=== PATIENT | female | born 1950 | race Caucasian/White ===

== ENCOUNTER → 2019-06-17 | Outpatient (CLI) | payer MEDICARE, OTHER ==
[~2019-06-17] MED LIST: BUSP10TA2 PO; ENAL5TAB PO; FOLI1TAB PO; GABA600T3 PO; METATAB PO; MULTIVIT PO; OMEP20TA7 OR; OMEP20TA7 PO; PROPR; TYLENOL; TYLENOL PM; VICO5TAB PO; WELL100T PO; [UNRECOGNIZED DRUG - OTHER]
== END ==
LOC: M WHC 10:32
PROVIDERS: ATTEND Physician Assistant
DX: Z13.820 Encounter for screening for osteoporosis (principal)

== ENCOUNTER → 2020-04-28 | Outpatient (CLI) | payer SELFPAY | LOC: M LABSMTC 10:55 | PROVIDERS: ATTEND Pediatrics | DX: Z20.828 Contact with and (suspected) exposure to other viral communicable diseases (principal) ==

== ENCOUNTER → 2020-08-13 | Outpatient (CLI) | payer MEDICARE, OTHER ==
--- NOTE | 2020-08-13 12:49 | REP ---
INDICATION: UNSP ATHSCL SENECA ARTERIES TOMMY LEGS COMPARISON: None. TECHNIQUE: Real time salas scale and Duplex Doppler evaluation of the bilateral lower extremity arterial vasculature using linear high frequency transducer. FINDINGS: Salas scale and duplex doppler images demonstrate mild scattered plaquing bilaterally. There is no hemodynamically significant stenosis and no arterial occlusion. JENN bilaterally is 1.0. There are diffuse triphasic waveforms bilaterally with biphasic waveform in the distal right anterior tibial artery. A complex Woodruff's cyst in the left popliteal fossa measures 4.5 x 0.9 x 2.6 cm. Peak systolic velocities (cm/sec) Common femoral artery: Right 63; Left 100 Profunda femoris: Right 93; Left 58 SFA (proximal): Right 155; Left 78 SFA (mid): Right 73; Left 80 SFA (distal): Right 59; Left 67 Popliteal artery: Right 46; Left 57 GUANAKITO (prox.): Right 36; Left 51 Tibioperoneal trunk: Right 38; Left 39 SPOOL CLEANER (prox.): Right 46; Left 47 SPOOL CLEANER (distal): Right 34; Left 63 GUANAKITO (distal): Right 33; Left 50 IMPRESSION: Mild scattered plaquing bilaterally. No evidence of hemodynamically significant stenosis or arterial occlusion. Complex Woodruff cyst left popliteal fossa 4.5 x 0.9 x 2.6 cm. <Electronically signed by Ruben Salas > 08/13/20 [id number]
== END ==
LOC: M RAD 11:13
PROVIDERS: ATTEND Physician Assistant
DX: I70.213 Atherosclerosis of native arteries of extremities with intermittent claudication, bilateral legs (principal)

== ENCOUNTER → 2020-12-30 | Outpatient (CLI) | payer MEDICARE, OTHER ==
--- NOTE | 2020-12-30 13:08 | REP ---
INDICATION: PAIN LT KNEE. COMPARISON: No comparison radiographs.. TECHNIQUE: Axial, coronal, and sagittal imaging planes utilized. T1, proton density and T2 weighted scans are included with without fat saturation. FINDINGS: There is a elongate Woodruff's cyst, 9.1 x 1.9 x 2.4 cm in diameter. There is a moderate to large joint effusion in the suprapatellar patellar bursa. There are extensive areas of marrow edema throughout the tibia centered in the medial tibial plateau and medial tibial metaphysis region. There also fairly large areas of marrow edema involving the lateral femoral condyle and the medial femoral condyle. No bony destructive lesion is seen. Superficial venous varicosities are noted in the periarticular soft tissues. There is patellofemoral, medial, and lateral tibiofemoral compartment spurring. Advanced chondromalacia changes are seen with large areas of full-thickness articular cartilage loss in the medial tibiofemoral compartment. Moderate chondromalacia changes are seen in the lateral and patellofemoral compartments. There are degenerative tears of the medial and lateral menisci. There is some medial meniscal extrusion which leads to some bowing of the medial collateral ligament. The horizontal tear is seen in the posterior horn and posterior body of the medial meniscus and there is posterior horn inner free margin tear of the lateral meniscus. Anterior and posterior cruciate ligaments appear intact. Patellar and quadriceps tendons are intact. There is no evidence of medial or lateral collateral ligament disruption. No loose body is appreciated. IMPRESSION: Moderate 3 compartment osteoarthritis. Large areas of marrow edema in the proximal tibia and distal femur. Joint effusion and Woodruff's cyst. Degenerative tears of the medial and lateral menisci and extensive chondromalacia as above. <Electronically signed by Tc Mckeon > 12/30/20 [id number]
== END ==
LOC: M RAD 09:56
PROVIDERS: ATTEND Orthopaedic Surgery
DX: R93.7 Abnormal findings on diagnostic imaging of other parts of musculoskeletal system (principal); M25.562 Pain in left knee

== ENCOUNTER → 2021-08-16 | Outpatient (CLI) | payer MEDICARE, OTHER | LOC: M LABSMTC 09:50 | PROVIDERS: ATTEND Orthopaedic Surgery | DX: Z01.818 Encounter for other preprocedural examination (principal); M25.562 Pain in left knee; M17.12 Unilateral primary osteoarthritis, left knee ==

== ENCOUNTER → 2021-11-15 | Outpatient (CLI) | payer MEDICARE, OTHER | LOC: M WHC 07:44 | PROVIDERS: ATTEND Family Medicine | DX: D48.1 Neoplasm of uncertain behavior of connective and other soft tissue (principal) ==

== ENCOUNTER 2021-11-25 07:54 | Outpatient (CLI) | payer MEDICARE, OTHER ==
[~2021-11-25] VITALS: Ht 175.3 cm; Wt 99.0 kg
[2021-11-25] MEDS ORDERED: FERRIC CARBOXYMALTOSE INJ 750 MG in NS 250 ML (>50kg) IV ONE ×3 (08:00)
[2021-11-25 08:05] VITALS: BP 123/69
[2021-11-25 09:32] VITALS: BP 107/58
== END 2021-11-25 10:00 | disposition home or self-care (01) ==
LOC: M INFU 07:54
PROVIDERS: ATTEND Family Medicine
DX: D50.9 Iron deficiency anemia, unspecified (principal)
CPT/HCPCS: 96365; J1439

== ENCOUNTER 2021-12-02 09:00 | Outpatient (CLI) | payer MEDICARE, OTHER ==
[~2021-12-02] VITALS: Ht 175.3 cm; Wt 99.0 kg
[~2021-12-02 09:00] MED LIST changes: +FERRIC CARBOXYMALTOSE INJ 750 MG in NS 250 ML (>50kg) IV ONE
[2021-12-02 09:10] VITALS: BP 120/75
[2021-12-02 10:30] VITALS: BP 133/71
== END 2021-12-02 10:30 | disposition home or self-care (01) ==
LOC: M INFU 09:00
PROVIDERS: ATTEND Family Medicine
DX: D50.9 Iron deficiency anemia, unspecified (principal); Z98.84 Bariatric surgery status
CPT/HCPCS: 96365; J1439

== ENCOUNTER → 2021-12-03 | Outpatient (CLI) | payer MEDICARE, OTHER ==
[~2021-12-03] MED LIST changes: -FERRIC CARBOXYMALTOSE INJ 750 MG in NS 250 ML (>50kg) IV ONE
== END ==
LOC: M RAD 12:57
PROVIDERS: ATTEND Chiropractor
DX: M54.50 Low back pain, unspecified (principal)

== ENCOUNTER → 2022-01-21 | Outpatient (CLI) | payer MEDICARE, OTHER | LOC: M WHC 12:33 | PROVIDERS: ATTEND Internal Medicine Hematology & Oncology | DX: R19.09 Other intra-abdominal and pelvic swelling, mass and lump (principal); D25.9 Leiomyoma of uterus, unspecified; N94.89 Other specified conditions associated with female genital organs and menstrual cycle ==

== ENCOUNTER 2022-08-28 11:43 | Emergency (ER) | payer MEDICARE, OTHER ==
[~2022-08-28] VITALS: Ht 175.3 cm; Wt 97.3 kg
[~2022-08-28 11:43] MED LIST changes: +BUPR-71 PO; +BUSP10TA PO; +BYDU2INJ7 SC; +CALC-190 PO; +DULO1CAP6 PO; +ENAL1TAB50 PO; +FOLI1TAB11 PO; +GABA-282 PO; +HYDR-4514 PO; +MM S100C PO; +OMEP-173 PO; +PRES1CHW PO; +ROSU40TA4 PO; +SPIR1TAB34 PO; +VITATAB73 PO; +VITMTA PO
[2022-08-28] MEDS ORDERED: BOOSTRIX/ADACEL VACCINE (DIPHTH/PERTUSS/ACELL/TETANUS) 0.5ML SYR IM ONE (14:30)
[2022-08-28] MEDS ORDERED: ceFAZolin SOD 2 GM in IV 1 EA IV ONE (14:30)
[2022-08-28] MEDS ORDERED: ONDANSETRON 4MG 2ML VIAL IV ONE (14:45)
[2022-08-28] MEDS ORDERED: MORPHINE 4 MG/ML 1ML VIAL IV ONE (14:45)
[2022-08-28] MEDS ORDERED: LIDOCAINE 1% MDV 20ML VIAL INFIL ONE (15:05)
[2022-08-28 15:35] LABS: BASO % 0.6 % (0.0-1.0); EOS # 0.3 10^3/uL (0.0-0.5); EOS % 7.3 % (0.0-3.0); HEMATOCRIT 38.8 % (36.0-47.0); HEMOGLOBIN 11.9 g/dl (12.0-15.5); LYMPH # 0.6 10^3/uL (1.5-5.0); LYMPH % 13.5 % (24.0-44.0); MEAN CORPUSCULAR HEMOGLOBIN 26.5 pg (27.0-33.0); MEAN CORPUSCULAR HGB CONC 30.7 g/dl (32.0-36.5); MEAN CORPUSCULAR VOLUME 86.4 fl (80.0-96.0); MONO # 0.3 10^3/uL (0.0-0.8); MONO % 6.6 % (2.0-8.0); NEUTROPHILS # 3.3 10^3/uL (1.5-8.5); NEUTROPHILS % 71.4 % (36.0-66.0); PLATELET COUNT, AUTOMATED 177 10^3/uL (150-450); RED BLOOD COUNT 4.49 10^6/uL (4.00-5.40); WHITE BLOOD COUNT 4.7 10^3/uL (4.0-10.0)
[2022-08-28 15:46] LABS: INR 0.94; PROTHROMBIN TIME 12.8 SECONDS (12.5-14.5)
[2022-08-28 15:47] LABS: PARTIAL THROMBOPLASTIN TIME 30.3 SECONDS (24.8-34.2)
[2022-08-28] MEDS ORDERED: CEPH500C PO (15:58)
[2022-08-28] MEDS ORDERED: PERC5TAB12 PO (15:58)
[2022-08-28 15:59] LABS: BLOOD UREA NITROGEN 23 MG/DL (9-23); CALCIUM LEVEL 9.6 MG/DL (8.3-10.6); CARBON DIOXIDE LEVEL 28 MMOL/L (20-31); CHLORIDE LEVEL 101 MMOL/L (98-107); CREATININE FOR GFR 0.98 MG/DL (0.55-1.30); GLOMERULAR FILTRATION RATE 59.2 (>39); GLUCOSE, FASTING 99 MG/DL (74-106); POTASSIUM SERUM 4.5 MMOL/L (3.5-5.1); SODIUM LEVEL 137 MMOL/L (136-145)
[2022-08-28 16:02] LABS: HEPATITIS B SURFACE ANTIBODY NEGATIVE (POSITIVE)
[2022-08-28 16:14] LABS: HEPATITIS B SURFACE ANTIGEN NEGATIVE (NEGATIVE)
[2022-08-28 16:27] LABS: HIV 1&2 SCREEN CENTAUR NEGATIVE (NEGATIVE)
[2022-08-28 16:35] LABS: HEPATITIS C VIRUS ABY INDEX 0.1 INDEX (<0.8)
[2022-08-28 17:07] VITALS: BP 142/98
== END 2022-08-28 17:17 | disposition home or self-care (01) ==
LOC: M ED 11:43
DX: S68.621A Partial traumatic transphalangeal amputation of left index finger, initial encounter (principal); S62.633B Displaced fracture of distal phalanx of left middle finger, initial encounter for open fracture; W31.2XXA Contact with powered woodworking and forming machines, initial encounter; Y92.009 Unspecified place in unspecified non-institutional (private) residence as the place of occurrence of the external cause; Y93.H3 Activity, building and construction; Y99.8 Other external cause status; S66.102A Unspecified injury of flexor muscle, fascia and tendon of right middle finger at wrist and hand level, initial encounter; I10 Essential (primary) hypertension; E11.9 Type 2 diabetes mellitus without complications; E78.5 Hyperlipidemia, unspecified
CPT/HCPCS: 12001; 73140; 80048; 85025; 85610; 85730; 86706; 86803; 87340; 87389; 90715; 99284; J0690; J2405

== ENCOUNTER → 2023-07-10 | Outpatient (CLI) | payer MEDICARE, OTHER ==
[~2023-07-10] MED LIST changes: +CEPH500C PO; +PERC5TAB12 PO
[2023-07-10 13:29] LABS: HEMATOCRIT 36.8 % (36.0-47.0); HEMOGLOBIN 11.4 g/dl (12.0-15.5); MEAN CORPUSCULAR HEMOGLOBIN 25.3 pg (27.0-33.0); MEAN CORPUSCULAR VOLUME 81.8 fl (80.0-96.0); PLATELET COUNT, AUTOMATED 185 10^3/uL (150-450); WHITE BLOOD COUNT 3.4 10^3/uL (4.0-10.0)
== END ==
LOC: M LAB 12:48
PROVIDERS: ATTEND Physician Assistant Medical
DX: R19.5 Other fecal abnormalities (principal)

== ENCOUNTER 2023-09-21 12:21 | Day surgery (SDC) | payer MEDICARE, OTHER ==
[~2023-09-21] VITALS: Ht 172.7 cm; Wt 95.5 kg
[~2023-09-21 12:21] MED LIST changes: +BENF150C3 PO; +MAGN400C PO; +THERTAB52 PO; +[UNRECOGNIZED DRUG - OTHER] PO
[2023-09-21] MEDS ORDERED: propofoL 200 MG/20 ML VIAL As Ordered ONE (14:50)
[2023-09-21] MEDS ORDERED: LIDOCAINE 2% 100MG/5ML SDV (FOR ANES.) As Ordered ONE (14:50)
[2023-09-21] MEDS ORDERED: fentaNYL 100 MCG/2 ML INJECTION As Ordered ONE (14:50)
[2023-09-21] MEDS ORDERED: PHENYLephrine 500MCG 5ML (100MCG/ML) SYRINGE As Ordered ONE (15:30)
[2023-09-21 16:05] VITALS: BP 106/60; TEMP 97; O2SAT 97
== END 2023-09-21 16:15 | disposition home or self-care (01) ==
LOC: M OPP 12:21
PROVIDERS: ATTEND Internal Medicine Gastroenterology
DX: R19.5 Other fecal abnormalities (principal); D12.4 Benign neoplasm of descending colon; D12.5 Benign neoplasm of sigmoid colon; K64.8 Other hemorrhoids; K57.30 Diverticulosis of large intestine without perforation or abscess without bleeding; Z98.0 Intestinal bypass and anastomosis status; D50.9 Iron deficiency anemia, unspecified; E11.9 Type 2 diabetes mellitus without complications; Z79.02 Long term (current) use of antithrombotics/antiplatelets; Z79.84 Long term (current) use of oral hypoglycemic drugs; Z79.811 Long term (current) use of aromatase inhibitors; Z79.891 Long term (current) use of opiate analgesic; Z79.899 Other long term (current) drug therapy
CPT/HCPCS: 43235; 45385; 88305; J2371; J3010

== ENCOUNTER → 2024-05-16 | Outpatient (CLI) | payer MEDICARE, OTHER ==
[~2024-05-16] MED LIST changes: +E-Z-PAQUE 96% w/w SUSP 176GM BTL As Ordered ONE; +GABA-1172 PO; -GABA-282 PO; -ROSU40TA4 PO; +ROSU40TA81 PO
== END ==
LOC: M RAD 08:29
PROVIDERS: ATTEND Physician Assistant Medical
DX: D50.9 Iron deficiency anemia, unspecified (principal)

== ENCOUNTER 2024-06-06 14:01 | Outpatient (CLI) | payer MEDICARE, OTHER ==
[~2024-06-06] VITALS: Ht 167.6 cm; Wt 95.5 kg
[~2024-06-06 14:01] MED LIST changes: +ACET32TAB PO; +CYCL-707 PO; -E-Z-PAQUE 96% w/w SUSP 176GM BTL As Ordered ONE; +IRON65TA2 PO; +PRES10CA2 PO; +SPIR-10 PO; +folate PO
[2024-06-06 14:30] VITALS: BP 133/65; O2SAT 100
[2024-06-06] MEDS: FERRIC CARBOXYMALTOSE 750 MG (VIAL MATE) IN 100ML NS IV ONE (14:36)
[2024-06-06 15:00] VITALS: BP_SYST 80; O2SAT 99
== END 2024-06-06 15:20 ==
LOC: M INFU 14:01
PROVIDERS: ATTEND Nurse Practitioner Adult Health
DX: D50.9 Iron deficiency anemia, unspecified (principal)
CPT/HCPCS: 96365; J1439

== ENCOUNTER 2024-06-13 14:00 | Outpatient (CLI) | payer MEDICARE, OTHER ==
[~2024-06-13] VITALS: Ht 175.3 cm; Wt 96.4 kg
[2024-06-13 14:00] VITALS: BP 148/71; O2SAT 96
[2024-06-13] MEDS: FERRIC CARBOXYMALTOSE 750 MG (VIAL MATE) IN 100ML NS IV ONE (14:10)
[2024-06-13 14:33] VITALS: BP 123/72; O2SAT 98
== END 2024-06-13 14:40 ==
LOC: M INFU 14:00
PROVIDERS: ATTEND Nurse Practitioner Adult Health
DX: D50.9 Iron deficiency anemia, unspecified (principal)
CPT/HCPCS: 96365; J1439

== ENCOUNTER 2024-06-15 09:59 | Day surgery (SDC) | payer MEDICARE, OTHER ==
[~2024-06-15] VITALS: Ht 175.3 cm; Wt 97.1 kg
[~2024-06-15 09:59] MED LIST changes: +PHENYLEPHRINE 10% OPHTH SOL 5ML OS PRN
[2024-06-15] MEDS: LIDOCAINE 3.5 % 1ML OPHTH TOPICAL GEL OU ONE (11:05)
[2024-06-15] MEDS: OFLOXACIN 0.3 % (OCUFLOX) OPTH SOL 5ML OS ONE (11:05)
[2024-06-15] MEDS: CYCLOPENTOLATE 1% OPHTH SOLN 2ML BTL OS SCH (11:05)
[2024-06-15] MEDS: PHENYLEPHRINE 2.5% OPHTH SOL 2ML OS SCH (11:05)
[2024-06-15] MEDS: TROPICAMIDE 1% OPHTH SOLN 15ML OS SCH (11:06)
[2024-06-15] MEDS ORDERED: fentaNYL 100 MCG/2 ML INJECTION As Ordered ONE (11:46)
[2024-06-15] MEDS ORDERED: MIDAZOLAM INJ 2MG/2ML VIAL As Ordered ONE (11:46)
[2024-06-15] MEDS: CEFUROXIME 1MG/0.1ML INTRACAMERAL INJ As Ordered ONE (12:43)
[2024-06-15] MEDS: BSS IRRIG/VANCO(10MG)/TOBRA(5MG)/EPINEPH(1:1000-0.5CC)500ML BAG-ORONLY As Ordered ONE (12:43)
[2024-06-15] MEDS: LIDOCAINE 1% SDV 5ML VIAL As Ordered ONE (12:43)
[2024-06-15 13:00] VITALS: BP 143/83; TEMP 96.8; O2SAT 96
== END 2024-06-15 13:22 | disposition home or self-care (01) ==
LOC: M SDC 09:59
PROVIDERS: ATTEND Ophthalmology
DX: E11.36 Type 2 diabetes mellitus with diabetic cataract (principal); H25.12 Age-related nuclear cataract, left eye; I10 Essential (primary) hypertension; E78.00 Pure hypercholesterolemia, unspecified; Z85.3 Personal history of malignant neoplasm of breast; Z92.3 Personal history of irradiation; Z79.899 Other long term (current) drug therapy; Z87.891 Personal history of nicotine dependence; Z90.710 Acquired absence of both cervix and uterus; Z98.84 Bariatric surgery status; Z90.49 Acquired absence of other specified parts of digestive tract
CPT/HCPCS: 66984; 92015; J0697; J2250; J3010; V2788

== ENCOUNTER 2024-06-22 09:08 | Day surgery (SDC) | payer MEDICARE, OTHER ==
[~2024-06-22] VITALS: Ht 175.3 cm; Wt 96.2 kg
[~2024-06-22 09:08] MED LIST changes: +PHENYLEPHRINE 10% OPHTH SOL 5ML OD PRN; -PHENYLEPHRINE 10% OPHTH SOL 5ML OS PRN
[2024-06-22] MEDS: OFLOXACIN 0.3 % (OCUFLOX) OPTH SOL 5ML OD ONE (10:15)
[2024-06-22] MEDS: LIDOCAINE 3.5 % 1ML OPHTH TOPICAL GEL OU ONE (10:15)
[2024-06-22] MEDS ORDERED: MIDAZOLAM INJ 2MG/2ML VIAL As Ordered ONE (10:21)
[2024-06-22] MEDS ORDERED: fentaNYL 100 MCG/2 ML INJECTION As Ordered ONE (10:22)
[2024-06-22] MEDS: TROPICAMIDE 1% OPHTH SOLN 15ML OD SCH (10:37)
[2024-06-22] MEDS: CYCLOPENTOLATE 1% OPHTH SOLN 2ML BTL OD SCH (10:37)
[2024-06-22] MEDS: PHENYLEPHRINE 2.5% OPHTH SOL 2ML OD SCH (10:37)
[2024-06-22] MEDS: LIDOCAINE 1% SDV 5ML VIAL As Ordered ONE (12:21)
[2024-06-22] MEDS: BSS IRRIG/VANCO(10MG)/TOBRA(5MG)/EPINEPH(1:1000-0.5CC)500ML BAG-ORONLY As Ordered ONE (12:21)
[2024-06-22] MEDS: CEFUROXIME 1MG/0.1ML INTRACAMERAL INJ As Ordered ONE (12:22)
[2024-06-22 12:40] VITALS: BP 133/83; TEMP 96.8; O2SAT 96
== END 2024-06-22 13:03 | disposition home or self-care (01) ==
LOC: M SDC 09:08
PROVIDERS: ATTEND Ophthalmology
DX: E11.36 Type 2 diabetes mellitus with diabetic cataract (principal); H25.11 Age-related nuclear cataract, right eye; I10 Essential (primary) hypertension; D64.9 Anemia, unspecified; E78.00 Pure hypercholesterolemia, unspecified; Z79.899 Other long term (current) drug therapy; Z85.3 Personal history of malignant neoplasm of breast; Z92.3 Personal history of irradiation; Z90.49 Acquired absence of other specified parts of digestive tract; Z98.84 Bariatric surgery status; Z90.710 Acquired absence of both cervix and uterus; F41.9 Anxiety disorder, unspecified; F32.A Depression, unspecified; Z98.42 Cataract extraction status, left eye
CPT/HCPCS: 66984; 92015; J0697; J2250; J3010; V2788

== ENCOUNTER → 2024-07-14 | Outpatient (CLI) | payer MEDICARE, OTHER ==
[~2024-07-14] MED LIST changes: -PHENYLEPHRINE 10% OPHTH SOL 5ML OD PRN
== END ==
LOC: M RAD 16:00
PROVIDERS: ATTEND Family Medicine
DX: J18.9 Pneumonia, unspecified organism (principal)